=== PATIENT | female | born 1950 | race Caucasian/White ===

== ENCOUNTER 2018-12-12 18:58 | Inpatient (IN) | payer OTHER ==
[2018-12-12 19:27] LABS: ADD MAN DIFF? NO
[2018-12-12 19:32] LABS: WHITE BLOOD COUNT 7.9 10^3/ul (4.8-10.8)
[2018-12-12 19:32] LABS: BASOPHIL # 0.1 10^3/ul (0.0-0.1); BASOPHILS % 1.3 % (0.0-2.0); EOSINOPHILS # 0.3 10^3/ul (0.0-0.5); EOSINOPHILS % 3.7 % (0.0-7.0); HEMATOCRIT 41.3 % (37.0-47.0); HEMOGLOBIN 13.3 g/dl (12.0-16.0); LYMPHOCYTES # 2.5 10^3/ul (0.8-2.9); LYMPHOCYTES % 31.4 % (15.0-51.0); MEAN CORPUSCULAR HEMOGLOBIN 28.4 pg (29.0-33.0); MEAN CORPUSCULAR HGB CONC 32.2 g/dl (32.0-37.0); MEAN CORPUSCULAR VOLUME 88.2 fl (82.0-101.0); MEAN PLATELET VOLUME 9.1 fl (7.4-10.4); MONOCYTE # 1.2 10^3/ul (0.3-0.9); MONOCYTES % 14.7 % (0.0-11.0); NEUTROPHIL # 3.9 10^3/ul (1.6-7.5); NEUTROPHILS % 48.6 % (39.0-77.0); PLATELET COUNT 267 10^3/UL (140-415); RED BLOOD COUNT 4.68 10^6/ul (4.20-5.40); RED CELL DISTRIBUTION WIDTH 14.6 % (11.5-14.5)
[2018-12-12] MEDS: ADENOSINE 3 MG/ML SYRINGE IV (19:40)
[2018-12-12] MEDS: ADENOSINE 6 MG INJ IV ×2 (19:40)
[2018-12-12 19:48] LABS: ANION GAP 11 (5-13); BLOOD UREA NITROGEN 16 mg/dl (7-20); CALCIUM 9.6 mg/dl (8.4-10.2); CARBON DIOXIDE 26 mmol/L (21-31); CHLORIDE 99 mmol/L (97-110); CREATININE 0.64 mg/dl (0.44-1.00); Estimated GFR > 60 mL/min (>60); GLUCOSE 190 mg/dl (70-220); MAGNESIUM 1.7 mg/dl (1.7-2.5); POTASSIUM 3.8 mmol/L (3.5-5.1); SODIUM 136 mmol/L (135-144)
[2018-12-12 19:59] LABS: TROPONIN-I < 0.012 ng/ml (0.000-0.120)
[2018-12-12] MEDS: DILTIAZEM 25 MG INJ IV (20:13)
[2018-12-12] MEDS: DILTIAZEM-D5W 125MG/125ML DRIP 125 ML IV (20:31)
[2018-12-12] MEDS ORDERED: INSULIN DETEMIR [LEVEMIR] 3ML CART SC (21:00)
[2018-12-12] MEDS: MAGNESIUM SULFATE 1 GM/D5W 100 ML IVPB ×2 (21:25→21:26)
[2018-12-12] MEDS: POTASSIUM CHLORIDE (SR) 20 MEQ TAB PO (21:26)
[2018-12-12] MEDS ORDERED: HYDROmorphONE 2 MG/ML SYG IV (21:27)
[2018-12-12] MEDS: METOPROLOL 5 MG INJ IV ×2 (21:27→21:47)
[2018-12-12] MEDS ORDERED: ACETAMINOPHEN 325 MG TAB PO (21:30)
[2018-12-12] MEDS ORDERED: NACL 0.9% 3 ML SYG IV (21:30)
[2018-12-12] MEDS ORDERED: ONDANSETRON 4 MG INJ IV ×2 (21:30)
[2018-12-12] MEDS ORDERED: BISACODYL (EC) 5 MG TAB PO (21:30)
[2018-12-12] MEDS ORDERED: morphine 2 MG INJ IV (21:30)
[2018-12-12] MEDS ORDERED: DOCUSATE SODIUM 100 MG CAP PO (21:30)
[2018-12-12] MEDS: METOPROLOL 25 MG TAB PO (23:49)
[2018-12-13] MEDS: INSULIN GLARGINE [LANTus] (100 UNITS/ML) SYG SC (00:06)
[2018-12-13] MEDS: INSULIN ASPART [NOVOLOG] 3 ML PEN SC ×5 (00:53→21:42)
[2018-12-13] MEDS: ACCU-CHEK XX ×2 (00:54→02:33)
[2018-12-13 05:59] LABS: ADD MAN DIFF? NO
[2018-12-13 06:06] LABS: WHITE BLOOD COUNT 7.3 10^3/ul (4.8-10.8)
[2018-12-13 06:06] LABS: BASOPHIL # 0.1 10^3/ul (0.0-0.1); BASOPHILS % 0.8 % (0.0-2.0); EOSINOPHILS # 0.2 10^3/ul (0.0-0.5); EOSINOPHILS % 2.6 % (0.0-7.0); HEMATOCRIT 34.4 % (37.0-47.0); HEMOGLOBIN 11.4 g/dl (12.0-16.0); LYMPHOCYTES # 1.4 10^3/ul (0.8-2.9); LYMPHOCYTES % 18.4 % (15.0-51.0); MEAN CORPUSCULAR HEMOGLOBIN 28.9 pg (29.0-33.0); MEAN CORPUSCULAR HGB CONC 33.1 g/dl (32.0-37.0); MEAN CORPUSCULAR VOLUME 87.3 fl (82.0-101.0); MEAN PLATELET VOLUME 9.4 fl (7.4-10.4); MONOCYTE # 1.1 10^3/ul (0.3-0.9); MONOCYTES % 14.7 % (0.0-11.0); NEUTROPHIL # 4.6 10^3/ul (1.6-7.5); NEUTROPHILS % 63.1 % (39.0-77.0); PLATELET COUNT 230 10^3/UL (140-415); RED BLOOD COUNT 3.94 10^6/ul (4.20-5.40); RED CELL DISTRIBUTION WIDTH 14.6 % (11.5-14.5)
[2018-12-13 07:18] LABS: ALANINE AMINOTRANSFERASE 30 IU/L (13-69); ALBUMIN 3.2 g/dl (3.3-4.9); ALBUMIN/GLOBULIN RATIO 1.28; ALKALINE PHOSPHATASE 57 IU/L (42-121); ANION GAP 5 (5-13); ASPARTATE AMINO TRANSFERASE 25 IU/L (15-46); BILIRUBIN,INDIRECT 0.7 mg/dl (0-1.1); BILIRUBIN,TOTAL 0.7 mg/dl (0.2-1.3); BLOOD UREA NITROGEN 10 mg/dl (7-20); CALCIUM 8.7 mg/dl (8.4-10.2); CARBON DIOXIDE 28 mmol/L (21-31); CHLORIDE 106 mmol/L (97-110); CHOL/HDL RATIO 2.6 RATIO; CHOLESTEROL 147 mg/dl (100-200); CREATININE 0.46 mg/dl (0.44-1.00); Estimated GFR > 60 mL/min (>60); GLUCOSE 152 mg/dl (70-220); HDL CHOLESTEROL 56 mg/dl (35-98); LDL CHOLESTEROL,CALCULATED 78 mg/dl; POTASSIUM 4.3 mmol/L (3.5-5.1); SODIUM 139 mmol/L (135-144); TOTAL PROTEIN 5.7 g/dl (6.1-8.1); TRIGLYCERIDES 66 mg/dl (0-149)
[2018-12-13] MEDS: ASPIRIN 81 MG TAB PO (08:46)
[2018-12-13] MEDS: METOPROLOL 25 MG TAB PO (08:46)
[2018-12-13] MEDS: ENOXAPARIN 80 MG/0.8 ML SYG SC (08:56)
[2018-12-13 08:58] LABS: FREE T4 (FREE THYROXINE) 1.13 ng/dl (0.78-2.44)
[2018-12-13 08:58] LABS: FREE T3 3.56 pg/ml (2.77-5.27)
[2018-12-13] MEDS ORDERED: GLUCOSE GEL 15 GRAM TUBE PO ×2 (13:00)
[2018-12-13] MEDS ORDERED: GLUCOSE GEL 15 GRAM TUBE BUCCAL (13:00)
[2018-12-13] MEDS ORDERED: DEXTROSE 50% 50 ML SYRINGE IV ×2 (13:00)
[2018-12-13] MEDS ORDERED: GLUCAGON 1 MG INJ IM (13:00)
[2018-12-13] MEDS: DILTIAZEM (CD) 120 MG CAP PO (16:09)
[2018-12-13] MEDS: METOPROLOL 5 MG INJ IV (16:19)
[2018-12-13] MEDS: DILTIAZEM 25 MG INJ IV (17:12)
[2018-12-13] MEDS: APIXABAN 5 MG TABLET PO (21:28)
[2018-12-13] MEDS: DOCUSATE SODIUM 100 MG CAP PO (21:30)
[2018-12-14] MEDS: ACCU-CHEK XX (02:33)
[2018-12-14 06:25] LABS: ADD MAN DIFF? NO
[2018-12-14 06:40] LABS: BASOPHIL # 0.1 10^3/ul (0.0-0.1); BASOPHILS % 1.6 % (0.0-2.0); EOSINOPHILS # 0.3 10^3/ul (0.0-0.5); HEMATOCRIT 36.2 % (37.0-47.0); HEMOGLOBIN 11.8 g/dl (12.0-16.0); LYMPHOCYTES # 1.6 10^3/ul (0.8-2.9); LYMPHOCYTES % 32.1 % (15.0-51.0); MEAN CORPUSCULAR HEMOGLOBIN 28.5 pg (29.0-33.0); MEAN CORPUSCULAR HGB CONC 32.6 g/dl (32.0-37.0); MEAN CORPUSCULAR VOLUME 87.4 fl (82.0-101.0); MEAN PLATELET VOLUME 9.3 fl (7.4-10.4); MONOCYTE # 0.7 10^3/ul (0.3-0.9); MONOCYTES % 14.7 % (0.0-11.0); NEUTROPHIL # 2.3 10^3/ul (1.6-7.5); PLATELET COUNT 237 10^3/UL (140-415); RED BLOOD COUNT 4.14 10^6/ul (4.20-5.40); RED CELL DISTRIBUTION WIDTH 14.6 % (11.5-14.5)
[2018-12-14 07:04] LABS: MAGNESIUM 1.7 mg/dl (1.7-2.5)
[2018-12-14 07:13] LABS: ANION GAP 6 (5-13); BLOOD UREA NITROGEN 14 mg/dl (7-20); CALCIUM 8.7 mg/dl (8.4-10.2); CARBON DIOXIDE 26 mmol/L (21-31); CHLORIDE 105 mmol/L (97-110); CREATININE 0.48 mg/dl (0.44-1.00); Estimated GFR > 60 mL/min (>60); GLUCOSE 170 mg/dl (70-220); POTASSIUM 3.9 mmol/L (3.5-5.1); SODIUM 137 mmol/L (135-144)
[2018-12-14] MEDS: INSULIN ASPART [NOVOLOG] 3 ML PEN SC ×4 (07:48→20:36)
[2018-12-14] MEDS: INSULIN GLARGINE [LANTus] (100 UNITS/ML) SYG SC (07:48)
[2018-12-14] MEDS: APIXABAN 5 MG TABLET PO ×2 (08:58→20:33)
[2018-12-14] MEDS: DOCUSATE SODIUM 100 MG CAP PO ×3 (08:59→20:37)
[2018-12-14] MEDS: DILTIAZEM (CD) 120 MG CAP PO ×2 (08:59→14:19)
[2018-12-14] MEDS: CALCIUM CARBONATE 1.25 GM TAB PO ×2 (14:20→22:36)
[2018-12-14] MEDS: LINAGLIPTIN 5 MG TABLET PO (14:23)
[2018-12-14] MEDS: metFORMIN 500 MG TAB PO (17:24)
[2018-12-15] MEDS: METOPROLOL 5 MG INJ IV (00:51)
[2018-12-15] MEDS: DILTIAZEM 25 MG INJ IV (01:35)
[2018-12-15] MEDS: ACCU-CHEK XX (01:45)
[2018-12-15] MEDS: INSULIN ASPART [NOVOLOG] 3 ML PEN SC ×4 (07:37→20:43)
[2018-12-15] MEDS: metFORMIN 500 MG TAB PO ×2 (07:37→17:57)
[2018-12-15] MEDS: INSULIN GLARGINE [LANTus] (100 UNITS/ML) SYG SC (07:43)
[2018-12-15] MEDS: CALCIUM CARBONATE 1.25 GM TAB PO ×2 (08:46→20:44)
[2018-12-15] MEDS: DOCUSATE SODIUM 100 MG CAP PO ×2 (08:46→20:44)
[2018-12-15] MEDS: LINAGLIPTIN 5 MG TABLET PO (08:47)
[2018-12-15] MEDS: DILTIAZEM (CD) 120 MG CAP PO (08:47)
[2018-12-15] MEDS: APIXABAN 5 MG TABLET PO ×2 (08:47→20:44)
[2018-12-16] MEDS: ACCU-CHEK XX (02:00)
[2018-12-16] MEDS: DILTIAZEM 25 MG INJ IV (03:08)
[2018-12-16] MEDS: METOPROLOL 5 MG INJ IV (03:52)
[2018-12-16] MEDS: DILTIAZEM-D5W 125MG/125ML DRIP 125 ML IV (04:31)
[2018-12-16] MEDS: MAGNESIUM SULFATE 1 GM/D5W 100 ML IVPB (05:01)
[2018-12-16] MEDS: CALCIUM CARBONATE 1.25 GM TAB PO ×2 (08:04→20:12)
[2018-12-16] MEDS: DOCUSATE SODIUM 100 MG CAP PO ×2 (08:04→20:54)
[2018-12-16] MEDS: metFORMIN 500 MG TAB PO ×2 (08:04→17:43)
[2018-12-16] MEDS: LINAGLIPTIN 5 MG TABLET PO (08:04)
[2018-12-16] MEDS: APIXABAN 5 MG TABLET PO ×2 (08:04→20:12)
[2018-12-16] MEDS: INSULIN GLARGINE [LANTus] (100 UNITS/ML) SYG SC (08:14)
[2018-12-16] MEDS: INSULIN ASPART [NOVOLOG] 3 ML PEN SC ×4 (08:14→20:10)
[2018-12-16] MEDS: DILTIAZEM (CD) 180 MG CAP PO ×2 (08:15→20:12)
[2018-12-17] MEDS: ACCU-CHEK XX (01:07)
[2018-12-17] MEDS: metFORMIN 500 MG TAB PO ×2 (07:49→17:37)
[2018-12-17] MEDS: INSULIN ASPART [NOVOLOG] 3 ML PEN SC ×4 (07:49→20:30)
[2018-12-17] MEDS: INSULIN GLARGINE [LANTus] (100 UNITS/ML) SYG SC (07:59)
[2018-12-17] MEDS: APIXABAN 5 MG TABLET PO ×2 (08:59→20:28)
[2018-12-17] MEDS: LINAGLIPTIN 5 MG TABLET PO (08:59)
[2018-12-17] MEDS: DOCUSATE SODIUM 100 MG CAP PO ×2 (08:59→21:30)
[2018-12-17] MEDS: CALCIUM CARBONATE 1.25 GM TAB PO ×2 (08:59→20:28)
[2018-12-17] MEDS: MAGNESIUM SULFATE 2 GM/50 ML 50 ML IVPB (10:30)
[2018-12-17] MEDS: DILTIAZEM 25 MG INJ IV (10:57)
[2018-12-17] MEDS: AMIODARONE 150MG/D5W BOLUS 100 ML IV (12:13)
[2018-12-17] MEDS: AMIODARONE 900 MG in DEXTROSE 5% 482 ML IV (13:10)
[2018-12-17 13:33] LABS: PHOSPHORUS 3.8 mg/dl (2.5-4.9)
[2018-12-17 13:33] LABS: MAGNESIUM 1.5 mg/dl (1.7-2.5)
[2018-12-17] MEDS: MAGNESIUM SULFATE 3 GM in DEXTROSE 5% 100 ML IVPB (17:03)
[2018-12-17] MEDS: DILTIAZEM (CD) 180 MG CAP PO (21:00)
[2018-12-18] MEDS: ACCU-CHEK XX (01:04)
[2018-12-18 06:52] LABS: ADD MAN DIFF? NO
[2018-12-18 06:58] LABS: BASOPHIL # 0.1 10^3/ul (0.0-0.1); BASOPHILS % 1.7 % (0.0-2.0); EOSINOPHILS # 0.3 10^3/ul (0.0-0.5); HEMATOCRIT 36.2 % (37.0-47.0); HEMOGLOBIN 11.7 g/dl (12.0-16.0); LYMPHOCYTES # 1.4 10^3/ul (0.8-2.9); LYMPHOCYTES % 23.8 % (15.0-51.0); MEAN CORPUSCULAR HEMOGLOBIN 28.2 pg (29.0-33.0); MEAN CORPUSCULAR HGB CONC 32.3 g/dl (32.0-37.0); MEAN CORPUSCULAR VOLUME 87.2 fl (82.0-101.0); MEAN PLATELET VOLUME 8.9 fl (7.4-10.4); MONOCYTE # 0.7 10^3/ul (0.3-0.9); MONOCYTES % 12.3 % (0.0-11.0); NEUTROPHIL # 3.4 10^3/ul (1.6-7.5); NEUTROPHILS % 56.5 % (39.0-77.0); PLATELET COUNT 257 10^3/UL (140-415); RED BLOOD COUNT 4.15 10^6/ul (4.20-5.40); RED CELL DISTRIBUTION WIDTH 14.3 % (11.5-14.5)
[2018-12-18 07:11] LABS: ALBUMIN 3.2 g/dl (3.3-4.9); ANION GAP 7 (5-13); BLOOD UREA NITROGEN 10 mg/dl (7-20); CALCIUM 8.9 mg/dl (8.4-10.2); CARBON DIOXIDE 27 mmol/L (21-31); CHLORIDE 102 mmol/L (97-110); GLUCOSE 100 mg/dl (70-220); PHOSPHORUS 3.9 mg/dl (2.5-4.9); POTASSIUM 3.7 mmol/L (3.5-5.1); SODIUM 136 mmol/L (135-144)
[2018-12-18] MEDS: INSULIN ASPART [NOVOLOG] 3 ML PEN SC ×4 (07:55→20:17)
[2018-12-18] MEDS: metFORMIN 500 MG TAB PO ×2 (08:56→17:48)
[2018-12-18] MEDS: APIXABAN 5 MG TABLET PO ×2 (08:57→20:26)
[2018-12-18] MEDS: LINAGLIPTIN 5 MG TABLET PO (08:57)
[2018-12-18] MEDS: CALCIUM CARBONATE 1.25 GM TAB PO ×2 (08:57→20:26)
[2018-12-18] MEDS: DOCUSATE SODIUM 100 MG CAP PO ×2 (10:11→20:26)
[2018-12-18] MEDS: INSULIN GLARGINE [LANTus] (100 UNITS/ML) SYG SC (10:11)
[2018-12-18] MEDS: FLECAINIDE 50 MG TAB PO (16:39)
[2018-12-18] MEDS: DILTIAZEM (CD) 180 MG CAP PO (20:26)
[2018-12-19] MEDS: FLECAINIDE 50 MG TAB PO ×2 (00:29→08:44)
[2018-12-19] MEDS: ACCU-CHEK XX (02:00)
[2018-12-19 06:09] LABS: ADD MAN DIFF? NO
[2018-12-19 06:17] LABS: BASOPHIL # 0.1 10^3/ul (0.0-0.1); BASOPHILS % 1.3 % (0.0-2.0); EOSINOPHILS # 0.3 10^3/ul (0.0-0.5); EOSINOPHILS % 3.9 % (0.0-7.0); HEMATOCRIT 33.8 % (37.0-47.0); HEMOGLOBIN 11.4 g/dl (12.0-16.0); LYMPHOCYTES # 1.5 10^3/ul (0.8-2.9); LYMPHOCYTES % 22.7 % (15.0-51.0); MEAN CORPUSCULAR HEMOGLOBIN 29.2 pg (29.0-33.0); MEAN CORPUSCULAR HGB CONC 33.7 g/dl (32.0-37.0); MEAN CORPUSCULAR VOLUME 86.7 fl (82.0-101.0); MEAN PLATELET VOLUME 8.9 fl (7.4-10.4); MONOCYTE # 0.8 10^3/ul (0.3-0.9); NEUTROPHIL # 3.8 10^3/ul (1.6-7.5); NEUTROPHILS % 58.6 % (39.0-77.0); PLATELET COUNT 262 10^3/UL (140-415); RED CELL DISTRIBUTION WIDTH 14.2 % (11.5-14.5)
[2018-12-19 06:17] LABS: WHITE BLOOD COUNT 6.4 10^3/ul (4.8-10.8)
[2018-12-19 06:40] LABS: ALBUMIN 3.4 g/dl (3.3-4.9); ANION GAP 5 (5-13); BLOOD UREA NITROGEN 9 mg/dl (7-20); CALCIUM 8.9 mg/dl (8.4-10.2); CARBON DIOXIDE 29 mmol/L (21-31); CHLORIDE 103 mmol/L (97-110); CREATININE 0.56 mg/dl (0.44-1.00); GLUCOSE 93 mg/dl (70-220); SODIUM 137 mmol/L (135-144)
[2018-12-19] MEDS: INSULIN ASPART [NOVOLOG] 3 ML PEN SC ×2 (07:55→11:50)
[2018-12-19] MEDS: DOCUSATE SODIUM 100 MG CAP PO (08:43)
[2018-12-19] MEDS: LINAGLIPTIN 5 MG TABLET PO (08:43)
[2018-12-19] MEDS: CALCIUM CARBONATE 1.25 GM TAB PO (08:44)
[2018-12-19] MEDS: APIXABAN 5 MG TABLET PO (08:44)
[2018-12-19] MEDS: metFORMIN 500 MG TAB PO (08:44)
[2018-12-19] MEDS: INSULIN GLARGINE [LANTus] (100 UNITS/ML) SYG SC (09:04)
[2018-12-19] MEDS: ACETAMINOPHEN 325 MG TAB PO (11:00)
== END 2018-12-19 17:15 | disposition home or self-care (01) | DRG 310 ==
LOC: E/R 18:58 → TEL 23:18
DX: I48.0 Paroxysmal atrial fibrillation (principal); I48.92 Unspecified atrial flutter; I47.1 Supraventricular tachycardia; E05.00 Thyrotoxicosis with diffuse goiter without thyrotoxic crisis or storm; E02 Subclinical iodine-deficiency hypothyroidism; E11.9 Type 2 diabetes mellitus without complications; I10 Essential (primary) hypertension; R53.83 Other fatigue; Z79.4 Long term (current) use of insulin; Z79.01 Long term (current) use of anticoagulants
CPT/HCPCS: 71045; 80048; 80053; 80061; 80069; 82962; 83036; 83735; 84100; 84439; 84443; 84481; 84484; 85025; 93005; 93306; 96374; 96375; 99285-25